=== PATIENT | male | born 1985 | race Two or more races ===

== ENCOUNTER 2023-11-01 07:22 | Emergency (ER) | payer OTHER ==
[~2023-11-01] VITALS: Ht 182.9 cm; Wt 108.9 kg
[2023-11-01] MEDS ORDERED: AMPH30TA3 PO (07:43)
[2023-11-01 08:24] VITALS: BP 109/76; TEMP 208.9; O2SAT 97
== END 2023-11-01 08:39 | disposition home or self-care (01) ==
LOC: ER 07:22
DX: S86.011A Strain of right Achilles tendon, initial encounter (principal); Z79.899 Other long term (current) drug therapy; Z60.2 Problems related to living alone; X58.XXXA Exposure to other specified factors, initial encounter; Y93.67 Activity, basketball; Y92.89 Other specified places as the place of occurrence of the external cause; Y99.8 Other external cause status
CPT/HCPCS: A4606; A4663